=== PATIENT | male | born 1985 ===

== ENCOUNTER 2017-03-19 03:17 | Emergency (ER) | payer SELFPAY ==
--- NOTE | 2017-03-19 03:39 | ED PDOC ---
HPI: Psych/Substance Abuse Chief Complaint (Provider): etoh History Per: EMS Additional Complaint(s): Patient arrives with EMS for evaluation of acute alcohol intoxication. Patient was found lying in the street, vomiting and he was transported here. Patient is actively vomiting upon arrival. <Amparo Aguilar - Last Filed: 03/19/17 05:39> <Uriel Weinstein - Last Filed: 03/19/17 07:22> Time Seen by Provider: 03/19/17 03:39 Past Medical History Reviewed: Unable To Obtain - Family History Family History: States: No Known Family Hx - Social History Alcohol: Social <Amparo Aguilar - Last Filed: 03/19/17 05:39> Vital Signs: Last Vital Signs Temp 97.8 F 03/19/17 04:09 Pulse 85 03/19/17 04:09 Resp 16 03/19/17 04:09 BP 119/69 03/19/17 04:09 Pulse Ox 99 03/19/17 05:41 <Uriel Weinstein - Last Filed: 03/19/17 07:22> - Allergies Allergies/Adverse Reactions: Allergies Allergy/AdvReac Type Severity Reaction Status Date / Time No Known Allergies Allergy Verified 03/19/17 03:52 Review of Systems ROS Statement: Except As Marked, All Systems Reviewed And Found Negative Psych: Positive for: Other (etoh) <Amparo Aguilar - Last Filed: 03/19/17 05:39> Physical Exam - Reviewed Nursing Documentation Reviewed: Yes Vital Signs Reviewed: Yes - Physical Exam Appears: Positive for: Well, Non-toxic, No Acute Distress Skin: Negative for: Rash Eye Exam: Positive for: Normal appearance Cardiovascular/Chest: Positive for: Regular Rate, Rhythm Respiratory: Positive for: Normal Breath Sounds Gastrointestinal/Abdominal: Positive for: Soft. Negative for: Tenderness Neurologic/Psych: Positive for: Other (alert, does not answer questions appropriately) <Amparo Aguilar - Last Filed: 03/19/17 05:39> - Laboratory Results Result Diagrams: 03/19/17 04:15 03/19/17 04:15 - ECG O2 Sat by Pulse Oximetry: 99 Pulse Ox Interpretation: Normal <Amparo Aguilar - Last Filed: 03/19/17 05:39> - Laboratory Results Result Diagrams: 03/19/17 04:15 02/11/18 04:15 <Uriel Weinstein - Last Filed: 03/19/17 07:22> Medical Decision Making Medical Decision Making: Impression: Intoxicated male patient, vomiting upon arrival Plan: CBC CMP BAL IVF IV zofran BAL: 346, 2nd bolus given. <JimbosofiaAmparo - Last Filed: 03/19/17 05:39> Disposition - Patient ED Disposition Is Patient to be Admitted: Transfer of Care - Disposition Disposition: Transfer of Care Disposition Time: 06:00 Patient Signed Over To: Uriel Weinstein Handoff Comments: Signed out pending sobriety and final disposition <NataliaAmparo pacheco - Last Filed: 03/19/17 05:39> - Disposition Disposition Time: 07:00 Patient Signed Over To: Addie Ayala <Uriel Weinstein - Last Filed: 03/19/17 07:22> - Clinical Impression Clinical Impression: Alcohol intoxication - Disposition Condition: FAIR Addendum Addendum: 03/19/17 07:21 Patient still too intoxicated for discharge. Will endorse to Dr. Ayala pending sobriety. <Uriel Weinstein - Last Filed: 03/19/17 07:22>
[2017-03-19 03:53] VITALS: BMI 24.3
[2017-03-19] MEDS ORDERED: Sodium Chloride 0.9% 1,000 ML IV STA ×2 (03:53→05:15)
[2017-03-19 04:32] LABS: BASO % 0.3 % (0.0-2.0); EOS % 0.2 % (0.0-4.0); HEMOGLOBIN 14.8 g/dL (12.0-18.0); LYMPH # 1.9 K/uL (1.0-4.3); LYMPH % 17.2 % (20.0-40.0); MEAN CELL VOLUME 86.4 fl (80.0-94.0); MEAN CORPUSCULAR HGB CONC 32.4 g/dL (33.0-37.0); MEAN PLATELET VOLUME 9.2 fl (7.2-11.7); MONO # 0.2 K/uL (0.0-0.8); MONO % 1.9 % (0.0-10.0); NEUT # 8.6 K/uL (1.8-7.0); NEUT % 80.4 % (50.0-75.0); RBC 5.29 Mil/uL (4.40-5.90); RED CELL DISTRIBUTION WIDTH 13.4 % (11.5-14.5); WHITE BLOOD COUNT 10.7 K/uL (4.8-10.8)
[2017-03-19 05:10] LABS: ALB/GLOB RATIO 1.4 (1.0-2.1); ALBUMIN 4.9 g/dL (3.5-5.0); ALT/SGPT 40 U/L (21-72); AST/SGOT 31 U/L (17-59); BLOOD UREA NITROGEN 14 mg/dl (9-20); CALCIUM 8.8 mg/dL (8.4-10.2); GFR AFRICAN-AMERICAN > 60; GFR NON-AFRICAN AMERICAN > 60
[2017-03-19 09:49] VITALS: RESP 18; TEMP 98
--- NOTE | 2017-03-19 10:19 | ED PDOC ---
- Laboratory Results Result Diagrams: 03/19/17 04:15 03/19/17 04:15 - ECG O2 Sat by Pulse Oximetry: 100 Medical Decision Making Medical Decision Making: ETOH 342 around 4am Disposition Doctor Will See Patient In The: Office Counseled Patient/Family Regarding: Diagnosis, Need For Followup - Clinical Impression Clinical Impression: Alcohol intoxication - POA Present On Arrival: None - Disposition Referrals: [facility] [Outside] [facility] [Outside] [facility] [Outside] Disposition: Routine/Home Disposition Time: 14:34 Condition: FAIR Instructions: Alcohol Intoxication (ED) Forms: [facility] (Pakistani) Print Language: ENGLISH
[2017-03-19 14:30] VITALS: BP 114/64; PULSE 80
[2017-03-19 14:36] VITALS: O2SAT 100
== END 2017-03-19 14:53 | disposition home or self-care (01) ==
LOC: H.ER 03:17 → EDBD 03:17 → H.ER 14:53
DX: F10.129 Alcohol abuse with intoxication, unspecified (principal)
CPT/HCPCS: 80053; 82948; 85025; 96361; 96374; 99284; G0480; J2405; J7040

== ENCOUNTER 2017-11-12 02:07 | Emergency (ER) | payer SELFPAY ==
[2017-11-12 02:25] VITALS: BMI 29.0
[2017-11-12 03:17] LABS: BASO % 0.2 % (0.0-2.0); EOS # 0.2 K/uL (0.0-0.7); EOS % 2.5 % (0.0-4.0); LYMPH # 4.5 K/uL (1.0-4.3); LYMPH % 44.9 % (20.0-40.0); MEAN CELL VOLUME 84.9 fl (80.0-94.0); MEAN CORPUSCULAR HEMOGLOBIN 29.1 pg (27.0-31.0); MEAN CORPUSCULAR HGB CONC 34.2 g/dL (33.0-37.0); MEAN PLATELET VOLUME 9.2 fl (7.2-11.7); MONO # 0.5 K/uL (0.0-0.8); MONO % 5.5 % (0.0-10.0); NEUT # 4.6 K/uL (1.8-7.0); NEUT % 46.9 % (50.0-75.0); NRBC % 0.1 % (0.0-0.0); RBC 5.14 Mil/uL (4.40-5.90); RED CELL DISTRIBUTION WIDTH 13.5 % (11.5-14.5); WHITE BLOOD COUNT 9.9 K/uL (4.8-10.8)
[2017-11-12 03:34] LABS: ALB/GLOB RATIO 1.3 (1.0-2.1); ALBUMIN 4.7 g/dL (3.5-5.0); ALT/SGPT 37 U/L (21-72); AST/SGOT 32 U/L (17-59); BLOOD UREA NITROGEN 10 mg/dl (9-20); CALCIUM 9.6 mg/dL (8.4-10.2); GFR NON-AFRICAN AMERICAN > 60
--- NOTE | 2017-11-12 03:51 | ED PDOC ---
HPI: Psych/Substance Abuse Time Seen by Provider: 11/12/17 02:17 Chief Complaint (Nursing): Alcohol Ingestion Chief Complaint (Provider): Alcohol abuse - Head injury History Per: Patient History/Exam Limitations: no limitations Onset/Duration Of Symptoms: Unknown Current Symptoms Are (Timing): Still Present Modifying Factor(s): Alcohol Additional Complaint(s): 32 yo male brought by EMS for evaluation after police found him sleeping outside. Pt with black on the forehead and small abrasion on the scalp. PT admits to drinking but history limited due to alcohol abuse. Pt vomiting in ER. Past Medical History Reviewed: Historical Data, Nursing Documentation, Vital Signs Vital Signs: Last Vital Signs Temp 98.2 F 11/12/17 02:25 Pulse 96 H 11/12/17 02:25 Resp 18 11/12/17 02:25 BP 145/83 11/12/17 02:25 Pulse Ox 100 11/12/17 02:25 - Medical History PMH: No Chronic Diseases - Family History Family History: States: Unknown Family Hx - Allergies Allergies/Adverse Reactions: Allergies Allergy/AdvReac Type Severity Reaction Status Date / Time No Known Allergies Allergy Verified 11/12/17 02:25 Review of Systems ROS Statement: Except As Marked, All Systems Reviewed And Found Negative Constitutional: Negative for: Fever, Chills Skin: Positive for: Other Physical Exam - Reviewed Nursing Documentation Reviewed: Yes Vital Signs Reviewed: Yes - Physical Exam Appears: Positive for: Well, Non-toxic, No Acute Distress Head Exam: Positive for: NORMAL INSPECTION, NORMOCEPHALIC. Negative for: ATRAUMATIC (Black substance on forehead, abrasion on the left posterior scalp ) Skin: Positive for: Normal Color, Warm, DRY Eye Exam: Positive for: EOMI, Normal appearance, PERRL ENT: Positive for: Normal ENT Inspection Neck: Positive for: Normal, Painless ROM Cardiovascular/Chest: Positive for: Regular Rate, Rhythm Respiratory: Positive for: Normal Breath Sounds. Negative for: Accessory Muscle Use, Respiratory Distress Back: Positive for: Normal Inspection Extremity: Positive for: Normal ROM Neurologic/Psych: Negative for: Gait, Facial Droop - Laboratory Results Result Diagrams: 11/12/17 02:42 11/12/17 02:40 - ECG O2 Sat by Pulse Oximetry: 100 Medical Decision Making Medical Decision Making: Continued care by Dr. Corinna pending sobriety at 0600. Disposition - Clinical Impression Clinical Impression: Alcohol abuse with intoxication - Patient ED Disposition Is Patient to be Admitted: Transfer of Care - Disposition Disposition: Transfer of Care Disposition Time: 06:00 Condition: STABLE Forms: [facility] (Sinhala)
[2017-11-12 08:51] VITALS: BP 122/73; PULSE 78; RESP 18; TEMP 98; O2SAT 100
--- NOTE | 2017-11-12 08:55 | CT ---
Date of service: 11/12/2017 PROCEDURE: CT HEAD WITHOUT CONTRAST. HISTORY: head injury, ETOH COMPARISON: None available. TECHNIQUE: Axial computed tomography images were obtained through the head/brain without intravenous contrast. Radiation dose: Total exam DLP = 933 mGy-cm. This CT exam was performed using one or more of the following dose reduction techniques: Automated exposure control, adjustment of the mA and/or kV according to patient size, and/or use of iterative reconstruction technique. FINDINGS: HEMORRHAGE: No intracranial hemorrhage. BRAIN: No mass effect or edema. No atrophy or chronic microvascular ischemic changes. VENTRICLES: Unremarkable. No hydrocephalus. CALVARIUM: Unremarkable. PARANASAL SINUSES: Unremarkable as visualized. No significant inflammatory changes. MASTOID AIR CELLS: Unremarkable as visualized. No inflammatory changes. OTHER FINDINGS: None. IMPRESSION: Unremarkable CT scan of the brain without contrast. This agrees with preliminary report provided by the on-call radiologist.
== END 2017-11-12 08:20 ==
LOC: H.ER 02:07
DX: F10.129 Alcohol abuse with intoxication, unspecified (principal); S09.90XA Unspecified injury of head, initial encounter; Y90.8 Blood alcohol level of 240 mg/100 ml or more
CPT/HCPCS: 70450; 80053; 82948; 85025; 99283; G0480; J2405